=== PATIENT | female | born 1970 | race Caucasian/White ===

== ENCOUNTER → 2016-06-05 | Outpatient (CLI) | payer BC ==
[~2016-06-05] MED LIST: 5-HT1CAP PO; CHOL2000 PO; DIGE1CAP10 PO; DRV100 PO; FLX10 PO; MISCCAP80 PO; MULT-506 PO; OXYC1TAB3 PO; [UNRECOGNIZED DRUG - CODE] PO; [UNRECOGNIZED DRUG - OTHER] PO
== END | disposition home or self-care (01) ==
LOC: C.PAPS 10:23
PROVIDERS: ATTEND Obstetrics & Gynecology
DX: Z01.419 Encounter for gynecological examination (general) (routine) without abnormal findings (principal)

== ENCOUNTER 2016-09-11 11:18 | Emergency (ER) | payer BC ==
[~2016-09-11] VITALS: Ht 165.1 cm; Wt 81.0 kg
[~2016-09-11 11:18] MED LIST changes: -5-HT1CAP PO; -CHOL2000 PO; -DIGE1CAP10 PO; -MISCCAP80 PO; -MULT-506 PO; -[UNRECOGNIZED DRUG - CODE] PO; -[UNRECOGNIZED DRUG - OTHER] PO
[2016-09-11 11:28] VITALS: Ht 165.1 cm; Wt 81.0 kg
[2016-09-11] MEDS ORDERED: SODIUM CHLORIDE 0.9% 1000ML 1,000 ML IV STA (11:48)
[2016-09-11] MEDS ORDERED: MISCCAP80 PO (12:14)
[2016-09-11] MEDS ORDERED: [UNRECOGNIZED DRUG - OTHER] PO (12:14)
[2016-09-11] MEDS ORDERED: 5-HT1CAP PO (12:14)
[2016-09-11] MEDS ORDERED: CHOL2000 PO (12:14)
[2016-09-11] MEDS ORDERED: [UNRECOGNIZED DRUG - CODE] PO (12:14)
[2016-09-11] MEDS ORDERED: DIGE1CAP10 PO (12:14)
[2016-09-11] MEDS ORDERED: MULT-506 PO (12:14)
[2016-09-11 12:25] LABS: AST/SGOT 19 U/L (15-37); BLOOD UREA NITROGEN 14 mg/dl (7-18); CARBON DIOXIDE 27 mmol/L (21-32); CHLORIDE 107 mmol/L (98-107); CREATININE 0.72 mg/dl (0.60-1.20); GLUCOSE 84 mg/dl (70-99); POTASSIUM 3.8 mmol/L (3.5-5.1); SODIUM 140 mmol/L (136-145)
--- NOTE | 2016-09-11 12:28 | DIAGNOSTIC IMAGING REPORT ---
CHEST ONE VIEW PORTABLE CLINICAL HISTORY: Weakness, anxiety. COMPARISON STUDY: No previous studies for comparison. FINDINGS: The cardiac and mediastinal contours are normal. There is no evidence of focal pulmonary consolidation. There is no evidence of failure. No pleural effusions are visualized.[ IMPRESSION: No active disease in the chest. Electronically signed by: Aaron Sigala M.D. 09/11/2016 12:26 PM Dictated Date/Time: 09/11/2016 12:26 PM
[2016-09-11 12:36] LABS: ALKALINE PHOSPHATASE 41 U/L (45-117); ALT/SGPT 25 U/L (12-78); BASO % 0.1 %; BASO ABS # 0.01 K/uL (0-0.2); CKMB/CK RATIO 1.6 (0-3.0); COMPLETE YES; EOS % 1.2 %; HEMATOCRIT 40.1 % (37-47); IG% 0.2 %; LYMPH % 20.5 %; MEAN CELL VOLUME 92.4 fL (80-100); MEAN CORPUSCULAR HEMOGLOBIN 31.3 pg (25-34); MEAN CORPUSCULAR HGB CONC 33.9 g/dl (32-36); MEAN PLATELET VOLUME 10.5 fL (7.4-10.4); MONO % 7.4 %; NEUT % 70.6 %; PLATELET COUNT 251 K/uL (130-400); RED BLOOD COUNT 4.34 M/uL (4.2-5.4); WHITE BLOOD COUNT 8.29 K/uL (4.8-10.8)
[2016-09-11 12:53] LABS: PROTHROMBIN TIME (PATIENT) 10.3 SECONDS (9.0-12.0)
[2016-09-11 13:08] LABS: PREG INTERNAL NEGATIVE QC NEG CLEAR BACKGROUND; PREG INTERNAL POSITIVE QC POS CONTROL LINE
[2016-09-11 13:23] LABS: URINE APPEARANCE CLEAR (CLEAR); URINE BILIRUBIN NEG (NEG); URINE COLOR YELLOW; URINE NITRITE NEG (NEG); URINE SPECIFIC GRAVITY 1.012 (1.000-1.030); UROBILINOGEN NEG (NEG)
[2016-09-11 13:24] LABS: MANUAL MICROSCOPIC REQUIRED? NO; REVIEW REQ? NO
[2016-09-11 15:24] VITALS: BP 113/71; PULSE 72; TEMP 36.6; O2SAT 98
--- NOTE | 2016-09-11 17:30 | EMERGENCY ROOM VISIT NOTE ---
History Report prepared by Felicita: Deon Woody Under the Supervision of: Dr. Paul Mello M.D. First contact with patient: 11:48 Chief Complaint: ILLNESS Stated Complaint: HEART PALPS, ANXIETY, NERVOUS, COLD HANDS, NOSE Nursing Triage Summary: PT HERE WITH FEELING JITTERY, FEELINGS OF PALPITATIONS AND FEELING COLD INTERMITTENTLY X SEVERAL DAYS. PT FEELS THAT HER THYROID IS OFF. History of Present Illness The patient is a 45 year old female who presents to the Emergency Room with complaints of intermittent heart palpitations starting 2 days ago. The patient describes it as a fluttering sensation in her chest. The palpitations occur about 4-5 times a day. The palpitations started around 9:30 am this morning. During the palpitation episodes, she feels lightheaded, chills, and feels as though she can "jump out of her skin." She currently denies any pain or palpitations. The patient has stopped using caffeine over the past few days. She denies any trouble exercising or changes in appetite. She has a family history of heart disease. Her grandfather from a myocardial infarction and her mother has cardiac stents. She does not have any personal history of heart disease. She denies any personal or family history of heart rhythm issues. Pt denies LOC, headache, fevers, diaphoresis, visual changes, neck pain, chest pain, breathing difficulties, nausea, vomiting, abdominal pain , back pain, melena, hematochezia, urinary symptoms, numbness, weakness, lymphadenopathy, rash, or other complaints. Source of History: patient Onset: 2 days ago Position: chest Symptom Intensity: No pain currently Quality: other (Heart palpitations) Timing: intermittent Associated Symptoms: + chills Review of Systems See HPI for pertinent positives and negatives. A total of ten systems were reviewed and were otherwise negative. Past Medical & Surgical Medical Problems: (1) Thyroid disease Family History Diabetes mellitus FH: CAD (coronary artery disease) FH: hypertension FH: kidney failure FH: myocardial infarction FH: spinal stenosis Heart disease Hypertension Social History Smoking Status: Never Smoker Marital Status: Occupation Status: employed Current/Historical Medications Scheduled 2-Bfs-Tgtufsbh-Niacin-Vitamin (5-Htp), 1 CAP PO DAILY Calcium Carbonate-Vitamin D (Calcium 500/D), 1 TAB PO DAILY Cholecalciferol (Vitamin D3), 2,000 INTER.UNIT PO DAILY Digestive Enzymes (Digestive Enzyme), 1 CAP PO TIDM Multivitamin (Multivitamin), 1 TAB PO DAILY Probiotic Product (Probiotic), 1 CAP PO DAILY [[employer] Forte], 1 TAB PO DAILY Allergies Coded Allergies: Erythromycin (Verified Allergy, Mild, GI SYMPTOMS, 09/11/16) Physical Exam Vital Signs Date Time Temp Pulse Resp B/P Pulse Ox O2 Delivery O2 Flow Rate FiO2 09/11/16 15:24 36.6 72 18 113/71 98 09/11/16 14:39 72 18 113/71 98 09/11/16 13:03 78 20 104/74 99 Room Air 09/11/16 12:27 63 09/11/16 11:28 36.6 75 16 122/79 96 Room Air Physical Exam GENERAL: Awake, alert, well-appearing, in no distress HENT: Normocephalic, atraumatic. Oropharynx unremarkable. EYES: Normal conjunctiva. Sclera non-icteric. NECK: Supple. No nuchal rigidity. FROM. No JVD. No thyroid tenderness. RESPIRATORY: Clear to auscultation. CARDIAC: Regular rate, normal rhythm. Extremities warm and well perfused. Pulses equal. ABDOMEN: Soft, non-distended. No tenderness to palpation. No rebound or guarding. No masses. RECTAL: Deferred. MUSCULOSKELETAL: Chest examination reveals no tenderness. The back is symmetrical on inspection without obvious abnormality. There is no CVA tenderness to palpation. No joint edema. LOWER EXTREMITIES: Calves are equal size bilaterally and non-tender. No edema. No discoloration. NEURO: Normal sensorium. No sensory or motor deficits noted. SKIN: No rash or jaundice noted. Medical Decision & Procedures ER Provider Diagnostic Interpretation: X-ray: Per my interpretation, radiologist review. CHEST ONE VIEW PORTABLE CLINICAL HISTORY: Weakness, anxiety. COMPARISON STUDY: No previous studies for comparison. FINDINGS: The cardiac and mediastinal contours are normal. There is no evidence of focal pulmonary consolidation. There is no evidence of failure. No pleural effusions are visualized.[ IMPRESSION: No active disease in the chest. Electronically signed by: Aaron Sigala M.D. 09/11/2016 12:26 PM Dictated Date/Time: 09/11/2016 12:26 PM Laboratory Results 09/11/16 12:00 Red Blood Count 4.34, Mean Corpuscular Volume 92.4, Mean Corpuscular Hemoglobin 31.3, Mean Corpuscular Hemoglobin Concent 33.9, Mean Platelet Volume 10.5, Neutrophils (%) (Auto) 70.6, Lymphocytes (%) (Auto) 20.5, Monocytes (%) (Auto) 7.4, Eosinophils (%) (Auto) 1.2, Basophils (%) (Auto) 0.1, Neutrophils # (Auto) 5.85, Lymphocytes # (Auto) 1.70, Monocytes # (Auto) 0.61, Eosinophils # (Auto) 0.10, Basophils # (Auto) 0.01 09/11/16 12:00 Test 09/11/16 12:00 09/11/16 12:35 White Blood Count 8.29 K/uL (4.8-10.8) Red Blood Count 4.34 M/uL (4.2-5.4) Hemoglobin 13.6 g/dL (12.0-16.0) Hematocrit 40.1 % (37-47) Mean Corpuscular Volume 92.4 fL (80-100) Mean Corpuscular Hemoglobin 31.3 pg (25-34) Mean Corpuscular Hemoglobin Concent 33.9 g/dl (32-36) Platelet Count 251 K/uL (130-400) Mean Platelet Volume 10.5 fL (7.4-10.4) Neutrophils (%) (Auto) 70.6 % Lymphocytes (%) (Auto) 20.5 % Monocytes (%) (Auto) 7.4 % Eosinophils (%) (Auto) 1.2 % Basophils (%) (Auto) 0.1 % Neutrophils # (Auto) 5.85 K/uL (1.4-6.5) Lymphocytes # (Auto) 1.70 K/uL (1.2-3.4) Monocytes # (Auto) 0.61 K/uL (0.11-0.59) Eosinophils # (Auto) 0.10 K/uL (0-0.5) Basophils # (Auto) 0.01 K/uL (0-0.2) RDW Standard Deviation 43.5 fL (36.4-46.3) RDW Coefficient of Variation 12.8 % (11.5-14.5) Immature Granulocyte % (Auto) 0.2 % Immature Granulocyte # (Auto) 0.02 K/uL (0.00-0.02) Urine Color YELLOW Urine Appearance CLEAR (CLEAR) Urine pH 7.0 (4.5-7.5) Urine Specific [place] 1.012 (1.000-1.030) Urine Protein NEG (NEG) Urine Glucose (UA) NEG (NEG) Urine Ketones NEG (NEG) Urine Occult Blood TRACE (NEG) Urine Nitrite NEG (NEG) Urine Bilirubin NEG (NEG) Urine Urobilinogen NEG (NEG) Urine Leukocyte Esterase NEG (NEG) Urine WBC (Auto) 0 /hpf (0-5) Urine RBC (Auto) 5-10 /hpf (0-4) Urine Hyaline Casts (Auto) 1-5 /lpf (0-5) Urine Epithelial Cells (Auto) 10-20 /lpf (0-5) Urine Bacteria (Auto) NEG (NEG) Anion Gap 6.0 mmol/L (3-11) Est Creatinine Clear Calc Drug Dose 104.8 ml/min Estimated GFR () 118.0 Estimated GFR (Non- 101.9 BUN/Creatinine Ratio 20.0 (10-20) Calcium Level 9.0 mg/dl (8.5-10.1) Magnesium Level 2.0 mg/dl (1.8-2.4) Total Bilirubin 0.4 mg/dl (0.2-1) Direct Bilirubin 0.1 mg/dl (0-0.2) Aspartate Amino Transf (AST/SGOT) 19 U/L (15-37) Alanine Aminotransferase (ALT/SGPT) 25 U/L (12-78) Alkaline Phosphatase 41 U/L (45-117) Total Creatine Kinase 70 U/L (26-192) Creatine Kinase MB 1.1 ng/ml (0.5-3.6) Creatine Kinase MB Ratio 1.6 (0-3.0) Troponin I < 0.015 ng/ml (0-0.045) Total Protein 7.5 gm/dl (6.4-8.2) Albumin 4.2 gm/dl (3.4-5.0) Thyroid Stimulating Hormone (TSH) 1.050 uIu/ml (0.300-4.500) Prothrombin Time 10.3 SECONDS (9.0-12.0) Prothromb Time International Ratio 1.0 (0.9-1.1) Activated Partial Thromboplast Time 26.3 SECONDS (21.0-31.0) Partial Thromboplastin Ratio 1.0 Human Chorionic Gonadotropin, Qual NEG (NEG) Laboratory results reviewed by me ECG Indication: palpitations Rate (beats per minute): 63 Rhythm: normal sinus Findings: no acute ischemic change, no ectopy, other (Normal intervals) ED Course 1148: The patient was evaluated in room A04B. A complete history and physical exam was performed. 1514: I reevaluated the patient who is asymptomatic. Discussed results and discharge instructions: She verbalized understanding and agreement. The patient is ready for discharge. Medical Decision Prior records/ancillary studies reviewed. Triage Nursing notes reviewed and agree them. Additional history obtained from the family. The patient's history was concerning for palpitations. Differential diagnosis: Etiologies such as electrolyte abnormality, cardiac dysrhythmia, thyroid dysfunction, pulmonary embolism, infection, gastrointestinal, as well as others were entertained. Physical examination: Benign as above. ER treatment provided: Cardiac monitoring. On reassessment the patient felt better. Diagnostic interpretation by me: The electrocardiogram was negative for pathologic change. The labs revealed an unremarkable CBC, chemistry panel, TSH, urinalysis, magnesium, , LFTs and cardiac markers. Imaging studies: Chest x-ray as above. The patient had intermittent palpitations. She examined normally. Cardiac monitoring here revealed no events. The patient has no syncopal issues with this. She has no breathing difficulties. I suspect that she is having either ectopy or possible paroxysmal dysrhythmia. She will need a cardiac event monitor. The patient will follow up with her primary physician for this. By the evaluation outlined above emergent etiologies such as electrolyte abnormality, cardiac dysrhythmia, thyroid dysfunction, pulmonary embolism, infection, as well as others were deemed relatively unlikely. The [] informed about the findings as listed above. All questions were answered and [] pleased with the treatment. Return instructions were outlined and the patient was discharged in stable condition. Outpatient prescription management: [] Referral: The patient was referred back to [] primary care physician for follow-up in 2 to 3 days for a recheck of the current condition. The chart was completed utilizing Linkage voice recognition software. Grammatical errors, random word insertions, pronoun errors, and incomplete sentences are an occasional consequence of this system due to software limitations, ambient noise, and hardware issues. Any formal questions or concerns about the content, text, or information contained within the body of this dictation should be directly addressed to the physician for clarification. Impression Primary Impression: Palpitations Scribe Attestation The scribe's documentation has been prepared under my direction and personally reviewed by me in its entirety. I confirm that the note above accurately reflects all work, treatment, procedures, and medical decision making performed by me. Departure Information Dispostion Home / Self-Care Referrals Freddy Juarez M.D. (PCP) Forms HOME CARE DOCUMENTATION FORM, IMPORTANT VISIT INFORMATION, WORK / SCHOOL INSTRUCTIONS Patient Instructions My [facility] Additional Instructions PALPITATIONS(RAPID OR SKIPPING HEARTBEAT) INSTRUCTIONS: Rest and drink plenty of fluids as tolerated. Continue current medications. Resume normal activities once your symptoms resolve. Eat a heart healthy, low fat, low cholesterol diet. Return to the ER immediately for passing out, chest pain, abdominal pain, vomiting, fevers, difficulty breathing, worsening of your condition, or as needed. Follow up with your primary physician next week for a recheck of your current condition and to discuss a heart monitor .
== END 2016-09-11 15:25 | disposition home or self-care (01) ==
LOC: C.EDB 11:20 → C.EDA 15:25
DX: R00.2 Palpitations (principal); E07.9 Disorder of thyroid, unspecified; Z79.899 Other long term (current) drug therapy; Z88.8 Allergy status to other drugs, medicaments and biological substances; Z83.3 Family history of diabetes mellitus; Z82.49 Family history of ischemic heart disease and other diseases of the circulatory system; Z84.1 Family history of disorders of kidney and ureter

== ENCOUNTER → 2017-03-19 | Outpatient (CLI) | payer BC ==
[~2017-03-19] MED LIST changes: +5-HT1CAP PO; +CHOL2000 PO; +DIGE1CAP10 PO; -DRV100 PO; -FLX10 PO; +MISCCAP80 PO; +MULT-506 PO; -OXYC1TAB3 PO; +[UNRECOGNIZED DRUG - CODE] PO; +[UNRECOGNIZED DRUG - OTHER] PO
--- NOTE | 2017-03-19 15:37 | MAMMOGRAPHY REPORT ---
BILATERAL DIGITAL DIAGNOSTIC MAMMOGRAM TOMOSYNTHESIS WITH CAD: 03/19/2017 CLINICAL HISTORY: 12 month follow-up of the left breast asymmetry which was biopsied December 2014 and yielded benign pathology. The patient reports no current complaints. TECHNIQUE: Breast tomosynthesis in addition to standard 2D mammography was performed. Current study was also evaluated with a Computer Aided Detection (CAD) system. Bilateral CC and MLO 2-D and tomosy nthesis images were obtained. COMPARISON: Comparison is made to exams dated: 03/18/2016 mammogram - [facility], 07/16/2015 mammogram, 12/31/2014 ultrasound biopsy, 12/31/2014 mammogram - [facility], 12/15/2014 mammogram - [facility], and 12/07/2014 mammogram. BREAST COMPOSITION: The tissue of both breasts is heterogeneously dense, which may obscure small mas ses. FINDINGS: A focal asymmetry is again noted within the left upper outer quadrant, with a biopsy marker clip seen within the asymmetry. THe asymmetry measures 3.0 x 2.3 cm on the MLO view, and does not a ppear significantly changed compared to the 2016 exams. This was biopsied and yielded benign patholo gy. Given the stability and benign pathology, the finding is considered benign. The remainder of arun th breasts are stable compared to prior exams, without suspicious masses, calcifications, or areas of architectural distortion noted. IMPRESSION: ACR BI-RADS CATEGORY 2: BENIGN Previously biopsied focal asymmetry in the left upper outer quadrant is stable compared to prior exam s, and is considered benign given the stability and benign pathology on biopsy. There is no mammogra phic evidence of malignancy. A 1 year screening mammogram is recommended. The patient has been verba lly notified of the results. Approximately 10% of breast cancers are not detected with mammography. A negative mammographic report should not delay biopsy if a clinically suggestive mass is present. Kathya Samayoa M.D. /:03/19/2017 08:10:45 Freight Forwarder: Rossana RIDDLE(Mo)([place]), [facility] letter sent: Normal 1/2 BI-RADS Code: ACR BI-RADS Category 2: Benign
== END | disposition home or self-care (01) ==
LOC: C.MAMM 07:51
PROVIDERS: ATTEND Family Medicine
DX: N64.89 Other specified disorders of breast (principal)

== ENCOUNTER → 2017-06-08 | Outpatient (CLI) | payer BC | END | disposition home or self-care (01) | LOC: C.PAPS 12:19 | PROVIDERS: ATTEND Physician Assistant | DX: Z01.419 Encounter for gynecological examination (general) (routine) without abnormal findings (principal) ==